=== PATIENT | female | born 1975 | race Caucasian/White ===

== ENCOUNTER 2017-02-25 13:03 | Emergency (ER) | payer MEDICARE ==
[~2017-02-25] VITALS: Ht 149.9 cm; Wt 70.0 kg
[2017-02-25 13:10] VITALS: BP 141/79; PULSE 94; RESP 14; TEMP 98.4; O2SAT 99
--- NOTE | 2017-02-25 15:25 | PD ---
Physical Exam Time Seen by Provider: 15:23 Narrative 41-year-old female presents to the emergency department requesting psych evaluation for suicidal thoughts. History of depression and anxiety that has been worsening. Discussed the current plan but says that if she had a gun she would use it. Occasional marijuana use. Frequent alcohol use. No current psych meds. No visual or auditory hallucinations. Patient seen in triage. Vital signs reviewed. Patient awaiting bed placement. Data Data Last Documented VS Vital Signs Date Time Temp Pulse Resp B/P (MAP) Pulse Ox O2 Delivery O2 Flow Rate FiO2 02/25/17 13:10 98.4 94 14 141/79 (99) 99 MDM Supervised Visit with MARYCRUZ: Melita Mendoza Feb 25, 2017 15:25
[2017-02-25 16:21] LABS: AUTOMATED NEUTROPHIL # 12.1 TH/MM3 (1.8-7.7); BASOPHIL # 0.1 TH/MM3 (0-0.2); BASOPHIL % 0.5 % (0.0-2.0); EOSINOPHIL % 0.2 % (0.0-4.0); HEMATOCRIT 41.6 % (35.0-46.0); HEMO FLAGS DIFF FINAL; LYMPH % 16.3 % (9.0-44.0); LYMPHOCYTE # 2.8 TH/MM3 (1.0-4.8); MEAN CELL VOLUME 84.2 FL (80.0-100.0); MEAN CORPUSCULAR HEMOGLOBIN 28.8 PG (27.0-34.0); MEAN CORPUSCULAR HGB CONC 34.2 % (32.0-36.0); MONO % 11.5 % (0.0-8.0); NEUT % 71.5 % (16.0-70.0); PLATELET COUNT 403 TH/MM3 (150-450); RED BLOOD COUNT 4.94 MIL/MM3 (4.00-5.30); RED CELL DISTRIBUTION WIDTH 14.6 % (11.6-17.2); WHITE BLOOD COUNT 16.9 TH/MM3 (4.0-11.0)
[2017-02-25 16:46] LABS: ANION GAP 11 MEQ/L (5-15)
[2017-02-25 16:51] LABS: ACETAMINOPHEN LESS THAN 2.0 MCG/ML (10.0-30.0); ALCOHOL LESS THAN 3 MG/DL (0-5); ALKALINE PHOSPHATASE 126 U/L (45-117); ALT (GPT) 55 U/L (10-53); AST (GOT) 40 U/L (15-37); BICARBONATE 21.9 MEQ/L (21.0-32.0); BLOOD UREA NITROGEN 8 MG/DL (7-18); CHLORIDE 103 MEQ/L (98-107); GLOMERULAR FILTRATION RATE 88 ML/MIN (>89); POTASSIUM 3.1 MEQ/L (3.5-5.1); SODIUM (NA) 136 MEQ/L (136-145); TOTAL BILIRUBIN ADULT 0.7 MG/DL (0.2-1.0)
--- NOTE | 2017-02-25 18:03 | PD ---
HPI . Suicidal ideation Chief Complaint: Psychiatric Symptoms Time Seen by Provider: 17:39 Travel History International Travel<30 days: No Contact w/Intl Traveler<30days: No Traveled to known affect area: No History of Present Illness HPI This patient presents for depression. She comes in voluntarily. States that she has suffered from depression since she was about 21 years old and that some days are worse than others. She states that she has intermittently sought care for her depression but is not currently seeing anyone. She states that she has been on medication in the past he did not like the way that the medication made her feel and it did not help her depression. She has recently been treating her depression with excessive alcohol. She states that she will frequently drinks so much that she passes out. She states that she did this last night. She states that she was so depressed today that she could not go to work. She states that she has started thinking about killing herself and that she would use a gun. She states that she does not own a gun but that she could have access to a gun. PFSH Past Medical History Anxiety: Yes Depression: Yes Cerebrovascular Accident: Yes Diminished Hearing: No ?: Not Past Surgical History Hysterectomy: Yes Social History Alcohol Use: Yes (daily) Tobacco Use: Yes ("chain smoking") Substance Use: Yes (marijuana) Allergies-Medications (Allergen,Severity, Reaction): Coded Allergies: penicillin G (Verified Allergy, Unknown, 02/25/17) Reported Meds & Prescriptions Reported Meds & Active Scripts Active No Active Prescriptions or Reported Medications Review of Systems Except as stated in HPI: all other systems reviewed are Neg Psychiatric: Positive: Depression, Suicidal Ideations, Mood Disorder, Substance Abuse, No: Homicidal Ideation Physical Exam Narrative GENERAL: Awake and alert. SKIN: Warm and dry without rash or lesions. HEAD: Normocephalic/atraumatic. EYES: The pulses are equal. Extraocular movements are intact. NECK: Full range of motion. CARDIOVASCULAR: Regular rate and rhythm. RESPIRATORY: Nonlabored. MUSCULOSKELETAL: Atraumatic. NEUROLOGICAL: A and O 3. Cranial nerves are intact. She moves all 4 extremities equally. She has a normal gait. PSYCHIATRIC: Depressed mood and affect. Good judgment in that she has sought care for her depression and chooses not own a gun because of her depression. Data Data Last Documented VS Vital Signs Date Time Temp Pulse Resp B/P (MAP) Pulse Ox O2 Delivery O2 Flow Rate FiO2 02/25/17 13:10 98.4 94 14 141/79 (99) 99 Orders Orders Complete Blood Count With Diff (02/25/17 15:25) Comprehensive Metabolic Panel (02/25/17 15:25) Psych Screen (02/25/17 15:25) Drug Screen, Random Urine (02/25/17 15:25) Alcohol (Ethanol) (02/25/17 15:25) Salicylates (Aspirin) (02/25/17 15:25) Tylenol (Acetaminophen) (02/25/17 15:25) Diet Regular Basic (02/25/17 Dinner) Urinalysis - C+S If Indicated (02/25/17 17:55) Potassium Chloride (Kcl) (02/25/17 18:45) Magnesium Oxide (Mag-Ox) (02/25/17 18:45) Lorazepam Inj (Ativan Inj) (02/25/17 19:00) Haloperidol Inj (Haldol Inj) (02/25/17 19:00) Nicotine 21 Mg Patch.24 Hr (Habitrol 21 (02/25/17 19:15) Labs Laboratory Tests Test 02/25/17 00:00 02/25/17 16:07 Urine Color LIGHT-YELLOW Urine Turbidity CLEAR Urine pH 5.5 Urine Specific [place] 1.002 Urine Protein NEG mg/dL Urine Glucose (UA) NEG mg/dL Urine Ketones 10 mg/dL Urine Occult Blood NEG Urine Nitrite NEG Urine Bilirubin NEG Urine Urobilinogen LESS THAN 2.0 MG/DL Urine Leukocyte Esterase NEG Urine Squamous Epithelial Cells 1 /hpf Urine Bacteria RARE /hpf Microscopic Urinalysis Comment CULT NOT INDICATED White Blood Count 16.9 TH/MM3 Red Blood Count 4.94 MIL/MM3 Hemoglobin 14.2 GM/DL Hematocrit 41.6 % Mean Corpuscular Volume 84.2 FL Mean Corpuscular Hemoglobin 28.8 PG Mean Corpuscular Hemoglobin Concent 34.2 % Red Cell Distribution Width 14.6 % Platelet Count 403 TH/MM3 Mean Platelet Volume 8.1 FL Neutrophils (%) (Auto) 71.5 % Lymphocytes (%) (Auto) 16.3 % Monocytes (%) (Auto) 11.5 % Eosinophils (%) (Auto) 0.2 % Basophils (%) (Auto) 0.5 % Neutrophils # (Auto) 12.1 TH/MM3 Lymphocytes # (Auto) 2.8 TH/MM3 Monocytes # (Auto) 1.9 TH/MM3 Eosinophils # (Auto) 0.0 TH/MM3 Basophils # (Auto) 0.1 TH/MM3 CBC Comment DIFF FINAL Differential Comment Blood Urea Nitrogen 8 MG/DL Creatinine 0.73 MG/DL Random Glucose 90 MG/DL Total Protein 7.9 GM/DL Albumin 4.0 GM/DL Calcium Level 8.9 MG/DL Alkaline Phosphatase 126 U/L Aspartate Amino Transf (AST/SGOT) 40 U/L Alanine Aminotransferase (ALT/SGPT) 55 U/L Total Bilirubin 0.7 MG/DL Sodium Level 136 MEQ/L Potassium Level 3.1 MEQ/L Chloride Level 103 MEQ/L Carbon Dioxide Level 21.9 MEQ/L Anion Gap 11 MEQ/L Estimat Glomerular Filtration Rate 88 ML/MIN Salicylates Level 2.8 MG/DL Acetaminophen Level LESS THAN 2.0 MCG/ML Ethyl Alcohol Level LESS THAN 3 MG/DL MDM Medical Decision Making Medical Screen Exam Complete: Yes Emergency Medical Condition: Yes Differential Diagnosis Differential diagnosis includes but is not limited to depression with suicidal gesture, suicide attempt, suicidal ideation, attention seeking behavior. Narrative Course This patient presented for the evaluation and treatment of depression with suicidal ideation. She is currently voluntary. However, if she chooses to leave, I will Conti Act her. This patient did threaten to leave so was subsequently Conti Acted. CBC & BMP Diagram 02/25/17 16:07 Total Protein 7.9, Albumin 4.0, Calcium Level 8.9, Alkaline Phosphatase 126 H, Aspartate Amino Transf (AST/SGOT) 40 H, Alanine Aminotransferase (ALT/SGPT) 55 H , Total Bilirubin 0.7 UA is negative for infection. Tylenol level is negative. Salicylate level is 2.8. Alcohol level is negative. Urine drug screen is still pending. I have medicated the patient with Ativan and Haldol. We hope that she will go to sleep for the night. I have also given her a dose of magnesium and potassium. She is medically clear for psychiatric evaluation. Diagnosis Primary Impression: Suicidal ideation Additional Impressions: Depression Qualified Codes: F32.9 - Major depressive disorder, single episode, unspecified Hypokalemia Scripts No Active Prescriptions or Reported Meds Condition: Alida Solomon MD Feb 25, 2017 18:03
[2017-02-25] MEDS ORDERED: MAGNESIUM OXIDE 400 MG TAB PO ONE (18:45)
[2017-02-25] MEDS ORDERED: POTASSIUM CHLORIDE 20 MEQ CONTROLLED RELEASE TAB PO ONE (18:45)
[2017-02-25] MEDS ORDERED: HALOPERIDOL LACTATE 5 MG/ML AMP IM ONE (19:00)
[2017-02-25] MEDS ORDERED: LORazepam 2 MG/ML VIAL IM ONE (19:00)
[2017-02-25 19:06] LABS: BACTERIA, URINE RARE /hpf; BLOOD, URINE NEG (NEG); COMMENT (UR) CULT NOT INDICATED; CULTURE IF INDICATED CULT NOT INDICATED; GLUCOSE,URINE NEG (NEG); KETONE, URINE 10 mg/dL (NEG); NITRITE,URINE NEG (NEG); PH, URINE 5.5 (5.0-8.5); SQUAMOUS EPITHELIAL CELL URINE 1 /hpf (0-5); URINE COLOR LIGHT-YELLOW (YELLW/STRAW)
[2017-02-25] MEDS ORDERED: NICOTINE 21 MG/24 HR PATCH T-DERMAL ONE (19:15)
[2017-02-25 20:17] VITALS: BP 135/86; PULSE 99; RESP 18; O2SAT 100
[2017-02-25] MEDS ORDERED: ACETAMINOPHEN 325 MG TAB PO ONE (21:15)
[2017-02-26 02:00] VITALS: BP 139/70; PULSE 82; RESP 18; O2SAT 97
[2017-02-26] MEDS ORDERED: diphenhydrAMINE HCL 50 MG CAP PO ONE (04:00)
[2017-02-26 07:24] VITALS: BP 125/62; PULSE 100; RESP 15; O2SAT 100
--- NOTE | 2017-02-26 13:33 | PD ---
History of Present Illness Chief Complaint: Psychiatric Symptoms Time Seen by Provider: 13:00 Travel History International Travel<30 Days: No Contact w/Intl Traveler<30days: No Known affected area: No Legal Status Legal Status: Conti Act Conti Act Comment: INTITIATED BY: DR EZEQUIEL MD History of Present Illness: History of Present Illness HPI This patient is a 41 year old female with history of depression who presents to [facility] on a voluntary basis for psychiatric evaluation. ED notes are reviewed and included in this report " States that she has suffered from depression since she was about 21 years old and that some days are worse than others. She states that she has intermittently sought care for her depression but is not currently seeing anyone. She states that she has been on medication in the past he did not like the way that the medication made her feel and it did not help her depression. She has recently been treating her depression with excessive alcohol. She states that she will frequently drinks so much that she passes out. She states that she did this last night. She states that she was so depressed today that she could not go to work. She states that she has started thinking about killing herself and that she would use a gun. She states that she does not own a gun but that she could have access to a gun." Patient has been monitored in Ed. She received ETO medications and was placed under a Conti act by ED physician. She has presented no behavioral concerns a and no suicidality EMR reviewed. No previous contact with [facility] psychiatry. Current toxicology is positive for cocaine. Patient is seen. Awake, alert and oriented. Engaging and cooperative. Speech is clear and logical. There is no psychosis, no juarez, no suicidal or homicidal ideation, intent or plan. States " Yesterday I was feeling like if I didn't live it would be ok but I will not harm myself. . That would be selfish. I have children and other family as well". She states she came here for help and to get counseling. She would like to get medication but she is hesitant due to previous medications caused her to gain weight. PFSH Past Medical History Anxiety: Yes Depression: Yes Cerebrovascular Accident: Yes Diminished Hearing: No ?: Not Past Surgical History Hysterectomy: Yes Psychiatric History Psychiatric History Hx Psychiatric Treatment: NONE. Has taken antidepressants in the past. History of Inpatient Treatment: No Guns or firearms in home: No Social History female. has 2 children. Lives alone. has shared custody of the children. Works as a [employer] assisted [employer]. Hx Alcohol Use: Yes (daily) Hx Tobacco Use: Yes ("chain smoking") Hx Substance Use: Yes (MARIJUANA, ALCOHOL) Substance Use Type: Alcohol, Marijuana Hx of Substance Use Treatment: No Family Psychiatric History Negative Allergies-Medications (Allergen,Severity, Reaction): Coded Allergies: penicillin G (Verified Allergy, Unknown, 02/25/17) Reported Meds & Prescriptions Reported Meds & Active Scripts Active No Active Prescriptions or Reported Medications Review of Systems Psychiatric: COMPLAINS OF: Anxiety Except as stated in HPI: all other systems reviewed are Neg Mental Status Examination Appearance: Appropriate (Dressed in [facility]) Consciousness: Alert Orientation: x4 Motor Activity: Normal gait Speech: Unremarkable Language: Adequate Fund of Knowledge: Adequate Attention and Concentration: Adequate Memory: Unremarkable Mood: Appropriate Affect: Appropriate Thought Process & Associations: Intact, Logical, Goal directed Thought Content: Appropriate Hallucination Type: None Delusion Type: None Suicidal Ideation: No Suicidal Plan: No Suicidal Intention: No Homicidal Ideation: No Homicidal Plan: No Homicidal Intention: No Insight: Fair Judgment: Adequate [facility] Medical Decision Making Medical Record Reviewed: Yes Assessment/Plan 41 year old female with a reported history of depression who presents as a voluntary patient seeking counseling services. She was placed under a BA by ED physician after she verbalized passive suicidal ideation and after she answered that if she were to kill herself how would she do it and she responded that she would use a gun. Patient under the influence of cocaine at the time of her arrival here to [facility]. She endorses she has been drinking to treat her depression. Patient was monitored and did not present any suicidality. She does not present evidence of acute mental illness as defined under the conti act. She has no access to weapons. She is future oriented with adequate protective factors. The BA will be lifted. Supportive interventions will be provided. Psychiatrically clear for discharge. Orders Orders Complete Blood Count With Diff (02/25/17 15:25) Comprehensive Metabolic Panel (02/25/17 15:25) Psych Screen (02/25/17 15:25) Drug Screen, Random Urine (02/25/17 15:25) Alcohol (Ethanol) (02/25/17 15:25) Salicylates (Aspirin) (02/25/17 15:25) Tylenol (Acetaminophen) (02/25/17 15:25) Diet Regular Basic (02/25/17 Dinner) Urinalysis - C+S If Indicated (02/25/17 17:55) Potassium Chloride (Kcl) (02/25/17 18:45) Magnesium Oxide (Mag-Ox) (02/25/17 18:45) Lorazepam Inj (Ativan Inj) (02/25/17 19:00) Haloperidol Inj (Haldol Inj) (02/25/17 19:00) Nicotine 21 Mg Patch.24 Hr (Habitrol 21 (02/25/17 19:15) Acetaminophen (Tylenol) (02/25/17 21:15) Diphenhydramine (Benadryl) (02/26/17 04:00) Diet Regular Basic (02/26/17 Breakfast) Hydroxyzine Hcl Inj (Vistaril Inj) (02/26/17 10:30) Results Vital Signs Date Time Temp Pulse Resp B/P (MAP) Pulse Ox O2 Delivery O2 Flow Rate FiO2 02/26/17 12:38 02/26/17 07:24 100 15 125/62 (83) 100 Room Air 02/26/17 02:00 82 18 139/70 (93) 97 Room Air 02/25/17 20:17 99 18 135/86 (102) 100 Room Air Laboratory Tests Test 02/25/17 16:07 White Blood Count 16.9 Red Blood Count 4.94 Hemoglobin 14.2 Hematocrit 41.6 Mean Corpuscular Volume 84.2 Mean Corpuscular Hemoglobin 28.8 Mean Corpuscular Hemoglobin Concent 34.2 Red Cell Distribution Width 14.6 Platelet Count 403 Mean Platelet Volume 8.1 Neutrophils (%) (Auto) 71.5 Lymphocytes (%) (Auto) 16.3 Monocytes (%) (Auto) 11.5 Eosinophils (%) (Auto) 0.2 Basophils (%) (Auto) 0.5 Neutrophils # (Auto) 12.1 Lymphocytes # (Auto) 2.8 Monocytes # (Auto) 1.9 Eosinophils # (Auto) 0.0 Basophils # (Auto) 0.1 CBC Comment DIFF FINAL Differential Comment Blood Urea Nitrogen 8 Creatinine 0.73 Random Glucose 90 Total Protein 7.9 Albumin 4.0 Calcium Level 8.9 Alkaline Phosphatase 126 Aspartate Amino Transf (AST/SGOT) 40 Alanine Aminotransferase (ALT/SGPT) 55 Total Bilirubin 0.7 Sodium Level 136 Potassium Level 3.1 Chloride Level 103 Carbon Dioxide Level 21.9 Anion Gap 11 Estimat Glomerular Filtration Rate 88 Salicylates Level 2.8 Acetaminophen Level LESS THAN 2.0 Ethyl Alcohol Level LESS THAN 3 Diagnosis Primary Impression: Substance induced mood disorder Additional Impression: Adjustment disorder Ruled Out: Suicidal ideation Psychiatrically Cleared: Yes Med/ Other Pt Specific Info: No Meds Exist/No RX given Prescriptions No Active Prescriptions or Reported Meds Disposition: 01 DISCHARGE HOME Condition: Stable Problem Qualifiers Additional Impression: Adjustment disorder Qualified Codes: F43.23 - Adjustment disorder with mixed anxiety and depressed mood Brittany Byers [facility] Feb 26, 2017 13:33
--- NOTE | 2017-02-26 13:56 | PD ---
Physical Exam Time Seen by Provider: 13:56 Narrative Please refer to previous providers documentation for details surrounding the patient's current visit. Data Data Last Documented VS Vital Signs Date Time Temp Pulse Resp B/P (MAP) Pulse Ox O2 Delivery O2 Flow Rate FiO2 02/26/17 12:38 02/26/17 07:24 100 15 100 Room Air 02/25/17 13:10 98.4 Orders Orders Complete Blood Count With Diff (02/25/17 15:25) Comprehensive Metabolic Panel (02/25/17 15:25) Psych Screen (02/25/17 15:25) Drug Screen, Random Urine (02/25/17 15:25) Alcohol (Ethanol) (02/25/17 15:25) Salicylates (Aspirin) (02/25/17 15:25) Tylenol (Acetaminophen) (02/25/17 15:25) Diet Regular Basic (02/25/17 Dinner) Urinalysis - C+S If Indicated (02/25/17 17:55) Potassium Chloride (Kcl) (02/25/17 18:45) Magnesium Oxide (Mag-Ox) (02/25/17 18:45) Lorazepam Inj (Ativan Inj) (02/25/17 19:00) Haloperidol Inj (Haldol Inj) (02/25/17 19:00) Nicotine 21 Mg Patch.24 Hr (Habitrol 21 (02/25/17 19:15) Acetaminophen (Tylenol) (02/25/17 21:15) Diphenhydramine (Benadryl) (02/26/17 04:00) Diet Regular Basic (02/26/17 Breakfast) Hydroxyzine Hcl Inj (Vistaril Inj) (02/26/17 10:30) Labs Laboratory Tests Test 02/25/17 00:00 02/25/17 16:07 Urine Color LIGHT-YELLOW Urine Turbidity CLEAR Urine pH 5.5 Urine Specific [place] 1.002 Urine Protein NEG mg/dL Urine Glucose (UA) NEG mg/dL Urine Ketones 10 mg/dL Urine Occult Blood NEG Urine Nitrite NEG Urine Bilirubin NEG Urine Urobilinogen LESS THAN 2.0 MG/DL Urine Leukocyte Esterase NEG Urine Squamous Epithelial Cells 1 /hpf Urine Bacteria RARE /hpf Microscopic Urinalysis Comment CULT NOT INDICATED Urine Opiates Screen NEG Urine Barbiturates Screen NEG Urine Amphetamines Screen NEG Urine Benzodiazepines Screen NEG Urine Cocaine Screen POS Urine Cannabinoids Screen NEG White Blood Count 16.9 TH/MM3 Red Blood Count 4.94 MIL/MM3 Hemoglobin 14.2 GM/DL Hematocrit 41.6 % Mean Corpuscular Volume 84.2 FL Mean Corpuscular Hemoglobin 28.8 PG Mean Corpuscular Hemoglobin Concent 34.2 % Red Cell Distribution Width 14.6 % Platelet Count 403 TH/MM3 Mean Platelet Volume 8.1 FL Neutrophils (%) (Auto) 71.5 % Lymphocytes (%) (Auto) 16.3 % Monocytes (%) (Auto) 11.5 % Eosinophils (%) (Auto) 0.2 % Basophils (%) (Auto) 0.5 % Neutrophils # (Auto) 12.1 TH/MM3 Lymphocytes # (Auto) 2.8 TH/MM3 Monocytes # (Auto) 1.9 TH/MM3 Eosinophils # (Auto) 0.0 TH/MM3 Basophils # (Auto) 0.1 TH/MM3 CBC Comment DIFF FINAL Differential Comment Blood Urea Nitrogen 8 MG/DL Creatinine 0.73 MG/DL Random Glucose 90 MG/DL Total Protein 7.9 GM/DL Albumin 4.0 GM/DL Calcium Level 8.9 MG/DL Alkaline Phosphatase 126 U/L Aspartate Amino Transf (AST/SGOT) 40 U/L Alanine Aminotransferase (ALT/SGPT) 55 U/L Total Bilirubin 0.7 MG/DL Sodium Level 136 MEQ/L Potassium Level 3.1 MEQ/L Chloride Level 103 MEQ/L Carbon Dioxide Level 21.9 MEQ/L Anion Gap 11 MEQ/L Estimat Glomerular Filtration Rate 88 ML/MIN Salicylates Level 2.8 MG/DL Acetaminophen Level LESS THAN 2.0 MCG/ML Ethyl Alcohol Level LESS THAN 3 MG/DL [facility] Medical Record Reviewed: Yes Supervised Visit with MARYCRUZ: No Narrative Course Patient was seen and evaluated, medically cleared by ER provider. Patient has now been seen and evaluated by psychiatry and does not meet inpatient Conti act criteria. With no further medical needs, patient will be discharged at this time. Diagnosis Primary Impression: Substance induced mood disorder Additional Impression: Adjustment disorder Qualified Codes: F43.23 - Adjustment disorder with mixed anxiety and depressed mood Ruled Out: Suicidal ideation Patient Instructions: General Instructions, Hypokalemia (ED), Depression (ED) Departure Forms: Tests/Procedures Scripts No Active Prescriptions or Reported Meds Disposition: DISCHARGE HOME Condition: Stable Divina Ascencio SOLOMON Feb 26, 2017 13:56
== END 2017-02-26 14:11 | disposition home or self-care (01) ==
LOC: NEPD 13:03 → NED 13:03 → NEPJ 02-26 14:11
DX: R45.851 Suicidal ideations (principal); F43.23 Adjustment disorder with mixed anxiety and depressed mood; E87.6 Hypokalemia; Z86.73 Personal history of transient ischemic attack (TIA), and cerebral infarction without residual deficits; F17.200 Nicotine dependence, unspecified, uncomplicated
CPT/HCPCS: 80053; 80307; 81001; 85025; 96372; 99284; J1630; J2060; J3410; Q0163

== ENCOUNTER 2017-06-08 09:18 | Emergency (ER) | payer MEDICAID, MEDICARE ==
[2017-06-08] MEDS ORDERED: TETRACAINE 0.5% OPTH SOLN 2 ML BTL RIGHT EYE (10:00)
[2017-06-08] MEDS: FLUORESCEIN SOD 1 MG STRIP RIGHT EYE (10:25)
[2017-06-08] MEDS: TETRACAINE 0.5% OPTH SOLN 4 ML BTL RIGHT EYE (10:26)
== END 2017-06-08 11:12 | disposition home or self-care (01) ==
LOC: NEPD 09:18
DX: H57.11 Ocular pain, right eye (principal); H20.9 Unspecified iridocyclitis; F17.210 Nicotine dependence, cigarettes, uncomplicated
CPT/HCPCS: 99284